=== PATIENT | male | born 1990 | race Two or more races ===

== ENCOUNTER 2018-01-31 16:48 | Emergency (ER) | payer OTHER ==
[2018-01-31] MEDS: IBUPROFEN 600 MG TAB PO (17:54)
== END 2018-01-31 18:34 | disposition home or self-care (01) ==
LOC: E/R 16:48
DX: S40.021A Contusion of right upper arm, initial encounter (principal); F17.210 Nicotine dependence, cigarettes, uncomplicated; S50.311A Abrasion of right elbow, initial encounter; S43.401A Unspecified sprain of right shoulder joint, initial encounter; W18.30XA Fall on same level, unspecified, initial encounter; Y92.9 Unspecified place or not applicable; Z02.89 Encounter for other administrative examinations
CPT/HCPCS: 73030; 73030-RT; 73080-RT; 99283-25